=== PATIENT | female | born 1975 | race Caucasian/White ===

== ENCOUNTER → 2016-04-23 | Outpatient (CLI) | payer MEDICAID ==
--- NOTE | 2016-04-23 12:39 | REPMRS ---
Patient History The patient states she had a clinical breast exam in No known family history of cancer. Taking hormonal contraceptives for 3 years. Digital Woman Screen Mammo: April 23, 2016 - Exam #: [id number] Bilateral CC and MLO view(s) were taken. Technologist: Aviva Razo, Technologist Prior study comparison: April 03, 2015, digital woman screen mammo performed at [facility]. March 28, 2014, digital woman screen mammo performed at [facility]. May 03, 2010, bilateral digital mammo screening bilat performed at [facility] to [facility]. FINDINGS: There are scattered fibroglandular densities. There has been no change in the appearance of the mammogram from the prior studies. There is a mild amount of residual fibroglandular tissue which is fairly symmetric. There is no interval development of dominant mass, architectural distortion, or clustered microcalcification suggestive of malignancy. There is a benign appearing intramammary node in the upper outer quadrant of the left breast. No significant changes when compared with prior studies. ASSESSMENT: BI-RADS/ACR category 2 mammogram. Benign finding(s). Recommendation Routine screening mammogram in 1 year (for women over age 40). This mammogram was interpreted with the aid of an FDA-approved computer-aided dectection system. A. Negative x-ray reports should not delay biopsy if a dominant or clinically suspicious mass is present. B. Four to eight percent of cancers are not identified by mammography. C. Adenosis and dense breast may obscure an underlying neoplasm. Electronically Signed By: Scooby Matthew MD 04/23/16 0470
== END ==
LOC: M WHC 10:54
PROVIDERS: ATTEND Nurse Practitioner Family
DX: Z12.31 Encounter for screening mammogram for malignant neoplasm of breast (principal)

== ENCOUNTER → 2016-08-13 | Outpatient (REF) | payer MEDICAID | LOC: M SMT 17:20 | PROVIDERS: ATTEND Nurse Practitioner Women's Health | DX: R32 Unspecified urinary incontinence (principal) ==

== ENCOUNTER → 2017-02-12 | Outpatient (REF) | payer MEDICAID | LOC: M SMT 13:10 | PROVIDERS: ATTEND Nurse Practitioner Women's Health | DX: N39.41 Urge incontinence (principal) ==

== ENCOUNTER → 2017-05-08 | Outpatient (CLI) | payer MEDICAID | LOC: M WHC 08:08 | DX: Z12.31 Encounter for screening mammogram for malignant neoplasm of breast (principal) | CPT/HCPCS: 77067 ==

== ENCOUNTER → 2017-11-13 | Outpatient (REF) | payer MEDICAID ==
[2017-11-13 14:43] LABS: APPEARANCE, URINE HAZY (CLEAR); BACTERIA, URINE AUTO 3+ (NEGATIVE); BILIRUBIN, URINE AUTO NEGATIVE (NEGATIVE); BLOOD, URINE BLOOD 2+ (NEGATIVE); COLOR, URINE YELLOW (YELLOW); GLUCOSE, URINE (UA) AUTO NEGATIVE (NEGATIVE); KETONE, URINE AUTO NEGATIVE (NEGATIVE); LEUKOCYTE ESTERASE, URINE AUTO 1+ (NEGATIVE); MUCUS, URINE SMALL (NEGATIVE); NITRITE, URINE AUTO NEGATIVE (NEGATIVE); PROTEIN, URINE AUTO NEGATIVE (NEGATIVE); RBC, URINE AUTO 1 /HPF (0-3); SPECIFIC GRAVITY URINE AUTO 1.003 (1.002-1.035); SQUAMOUS EPITHELIAL CELL UR AU 2 /HPF (0-6); UROBILINOGEN, URINE AUTO 0.2 mg/dL (0.0-2.0); WBC, URINE AUTO 5 /HPF (0-3)
== END ==
LOC: M SMT 13:42
DX: R30.0 Dysuria (principal)

== ENCOUNTER → 2018-06-03 | Outpatient (CLI) | payer MEDICAID ==
--- NOTE | 2018-06-03 12:04 | REPMRS ---
Patient History The patient states she had a clinical breast exam in 06/2018. Took hormonal contraceptives for 3 years beginning at age 38. 3D TOMOSYNTHESIS WAS PERFORMED. Digital Woman Screen Mammo: June 03, 2018 - Exam #: [id number] Bilateral CC and MLO view(s) were taken. Technologist: Inocencia Phillips, Technologist Prior study comparison: May 08, 2017, digital woman screen mammo performed at [facility]. April 23, 2016, digital woman screen mammo performed at [facility]. FINDINGS: There are scattered fibroglandular densities. There has been no change in the appearance of the mammogram from the prior studies. There is a mild amount of residual fibroglandular tissue which is fairly symmetric. There is no interval development of dominant mass, architectural distortion, or clustered microcalcification suggestive of malignancy. Assessment: BI-RADS/ACR category 1 mammogram. Negative Mammogram. Recommendation Routine screening mammogram in 1 year (for women over age 40). This mammogram was interpreted with the aid of an FDA-approved computer-aided dectection system. Electronically Signed By: Abdirashid Shepherd MD 06/03/18 [id number]
== END ==
LOC: M WHC 10:20
PROVIDERS: ATTEND Nurse Practitioner Family
DX: Z12.31 Encounter for screening mammogram for malignant neoplasm of breast (principal)

== ENCOUNTER → 2018-06-03 | Outpatient (REF) | payer MEDICAID ==
[2018-06-06 15:33] LABS: HPV HYBRID CAPTURE II Negative (Negative)
== END ==
LOC: M SFHCWAGY 10:48
PROVIDERS: ATTEND Nurse Practitioner Family
DX: Z12.4 Encounter for screening for malignant neoplasm of cervix (principal)

== ENCOUNTER 2018-07-15 09:37 | Outpatient (RCR) | payer MEDICAID | END 2018-07-31 | LOC: M PT 09:37 | PROVIDERS: ATTEND Nurse Practitioner Women's Health | DX: N39.41 Urge incontinence (principal) ==

== ENCOUNTER 2018-08-05 09:30 | Outpatient (RCR) | payer MEDICAID | END 2018-08-30 | disposition home or self-care (01) | LOC: M PT 09:30 | PROVIDERS: ATTEND Nurse Practitioner Women's Health | DX: N39.41 Urge incontinence (principal) ==

== ENCOUNTER → 2018-10-28 | Outpatient (CLI) | payer MEDICAID ==
[2018-10-28 06:51] LABS: BASO % 0.4 % (0.0-1.0); EOS # 0.3 10^3/uL (0.0-0.50); EOS % 3.6 % (0.0-3.0); HEMATOCRIT 39.2 % (36.0-47.0); HEMOGLOBIN 12.3 g/dl (12.0-15.5); LYMPH # 1.8 10^3/uL (1.5-4.5); LYMPH % 25.9 % (24.0-44.0); MEAN CORPUSCULAR HEMOGLOBIN 29.8 pg (27.0-33.0); MEAN CORPUSCULAR HGB CONC 31.4 g/dl (32.0-36.5); MEAN CORPUSCULAR VOLUME 94.9 fl (80.0-96.0); MONO # 0.5 10^3/uL (0.0-0.8); MONO % 7.4 % (0.0-5.0); NEUTROPHILS # 4.4 10^3/uL (1.8-7.7); NEUTROPHILS % 62.4 % (36.0-66.0); PLATELET COUNT, AUTOMATED 401 10^3/uL (150-450); RED BLOOD COUNT 4.13 10^6/uL (4.00-5.40)
[2018-10-28 07:20] LABS: ALBUMIN 3.3 GM/DL (3.2-5.2); ALT/SGPT 18 U/L (12-78); BILIRUBIN,TOTAL 0.4 MG/DL (0.2-1.0); BLOOD UREA NITROGEN 11 MG/DL (7-18); CALCIUM LEVEL 8.9 MG/DL (8.5-10.1); CARBON DIOXIDE LEVEL 28 MEQ/L (21-32); CHLORIDE LEVEL 105 MEQ/L (98-107); CHOLESTEROL LEVEL 168 MG/DL (<200); CHOLESTEROL RISK RATIO 2.584 (<5); CREATININE FOR GFR 0.71 MG/DL (0.55-1.30); GLOMERULAR FILTRATION RATE > 60.0 (>58); GLUCOSE, FASTING 100 MG/DL (70-100); HDL CHOLESTEROL 65 MG/DL (>40); LDL CHOLESTEROL 88 MG/DL (<100); NON-HDL-C 103 MG/DL; POTASSIUM SERUM 4.3 MEQ/L (3.5-5.1); SODIUM LEVEL 139 MEQ/L (136-145); TOTAL PROTEIN 7.1 GM/DL (6.4-8.2); TRIGLYCERIDES LEVEL 74 MG/DL (<150)
== END ==
LOC: M LAB 06:18
PROVIDERS: ATTEND Internal Medicine
DX: F41.9 Anxiety disorder, unspecified (principal); E66.9 Obesity, unspecified

== ENCOUNTER → 2018-12-17 | Outpatient (REF) | payer MEDICAID | LOC: M LAB REF 16:28 | PROVIDERS: ATTEND Physician Assistant | DX: R30.0 Dysuria (principal) ==

== ENCOUNTER 2020-03-09 17:33 | Emergency (ER) | payer MEDICAID ==
[~2020-03-09] VITALS: Ht 167.6 cm; Wt 104.5 kg
[2020-03-09 18:52] LABS: BASO # 0.1 10^3/uL (0.0-0.2); BASO % 0.8 % (0.0-1.0); EOS # 0.4 10^3/uL (0.0-0.5); EOS % 5.4 % (0.0-3.0); HEMATOCRIT 38.7 % (36.0-47.0); HEMOGLOBIN 11.8 g/dl (12.0-15.5); LYMPH # 1.9 10^3/uL (1.5-5.0); LYMPH % 26.5 % (24.0-44.0); MEAN CORPUSCULAR HEMOGLOBIN 29.3 pg (27.0-33.0); MEAN CORPUSCULAR HGB CONC 30.5 g/dl (32.0-36.5); MONO # 0.9 10^3/uL (0.0-0.8); MONO % 12.8 % (0.0-5.0); NEUTROPHILS # 3.9 10^3/uL (1.5-8.5); NEUTROPHILS % 54.2 % (36.0-66.0); PLATELET COUNT, AUTOMATED 367 10^3/uL (150-450); RED BLOOD COUNT 4.03 10^6/uL (4.00-5.40); WHITE BLOOD COUNT 7.2 10^3/uL (4.0-10.0)
[2020-03-09] MEDS ORDERED: AMIT50TA PO (19:02)
[2020-03-09] MEDS ORDERED: LEXA1TAB2 PO (19:02)
[2020-03-09] MEDS ORDERED: MECLIZINE 25 MG TABLET PO ONE (19:30)
[2020-03-09] MEDS ORDERED: ONDANSETRON 4 MG ORAL DISINTEGRATING TAB PO ONE (22:30)
[2020-03-09] MEDS ORDERED: DEBR6.5S4 OTIC (22:40)
[2020-03-09] MEDS ORDERED: FLON1SPR NARES (22:40)
[2020-03-09] MEDS ORDERED: ONDA4TAB6 PO (22:40)
[2020-03-09 22:52] VITALS: BP 148/86
== END 2020-03-09 22:53 | disposition home or self-care (01) ==
LOC: EDBD 17:33 → M ED 17:33
DX: R42 Dizziness and giddiness (principal); H61.23 Impacted cerumen, bilateral; H65.02 Acute serous otitis media, left ear; F33.9 Major depressive disorder, recurrent, unspecified; Z91.030 Bee allergy status; Z79.899 Other long term (current) drug therapy
CPT/HCPCS: 36415; 69210; 80047; 81001; 85025; 99284; Q0162

== ENCOUNTER → 2020-07-10 | Outpatient (CLI) | payer MEDICAID ==
[~2020-07-10] MED LIST: AMIT50TA PO; DEBR6.5S4 OTIC; FLON1SPR NARES; LEXA1TAB2 PO; ONDA4TAB6 PO
--- NOTE | 2020-07-10 14:48 | REP ---
INDICATION: ALBER DIAG LEFT MAMMO/LEFT BREAST JOSE DENSITY. COMPARISON: Prior screening exam 06/29/2020 TECHNIQUE: Diagnostic digital magnified spot compression views left breast were obtained FINDINGS: The subtle nodular density in question has compressed out to normal breast parenchyma. There are no abnormalities noted. IMPRESSION: BIRADS/ACR category 2 negative mammogram. The patient letter being requested is M1. RECOMMENDATION: Repeat screening mammography recommended 1 year (for women over 40). <Electronically signed by Gage Cole > 07/10/20 [id number]
== END ==
LOC: M WHC 13:53
PROVIDERS: ATTEND Internal Medicine
DX: N64.89 Other specified disorders of breast (principal)
CPT/HCPCS: 77065; G0279

== ENCOUNTER 2020-09-07 11:42 | Emergency (ER) | payer MEDICAID ==
[~2020-09-07] VITALS: Ht 167.6 cm; Wt 112.7 kg
[2020-09-07] MEDS ORDERED: ACETAMINOPHEN 500 MG TAB PO ONE (11:50)
--- NOTE | 2020-09-07 12:19 | REP ---
INDICATION: CP. COMPARISON: 09/22/2006. TECHNIQUE: Single portable AP view of the chest was performed. FINDINGS: There is no acute infiltrate or pulmonary edema. Lungs are clear. The heart is not significantly enlarged. The mediastinal silhouette is unremarkable. The visualized osseous structures are intact. IMPRESSION: No acute pulmonary disease. <Electronically signed by Abdirashid Shepherd > 09/07/20 [id number]
[2020-09-07 12:36] LABS: BASO # 0.1 10^3/uL (0.0-0.2); BASO % 0.7 % (0.0-1.0); EOS # 0.6 10^3/uL (0.0-0.5); EOS % 6.8 % (0.0-3.0); HEMATOCRIT 42.8 % (36.0-47.0); HEMOGLOBIN 13.4 g/dl (12.0-15.5); LYMPH # 2.1 10^3/uL (1.5-5.0); LYMPH % 25.7 % (24.0-44.0); MEAN CORPUSCULAR HEMOGLOBIN 29.3 pg (27.0-33.0); MEAN CORPUSCULAR HGB CONC 31.3 g/dl (32.0-36.5); MEAN CORPUSCULAR VOLUME 93.4 fl (80.0-96.0); MONO # 0.6 10^3/uL (0.0-0.8); MONO % 6.9 % (2.0-8.0); NEUTROPHILS # 4.9 10^3/uL (1.5-8.5); NEUTROPHILS % 59.5 % (36.0-66.0); PLATELET COUNT, AUTOMATED 410 10^3/uL (150-450); RED BLOOD COUNT 4.58 10^6/uL (4.00-5.40); WHITE BLOOD COUNT 8.2 10^3/uL (4.0-10.0)
[2020-09-07 13:13] LABS: ALBUMIN 3.5 GM/DL (3.2-5.2); ALT/SGPT 27 U/L (12-78); BILIRUBIN,DIRECT < 0.1 MG/DL (0.0-0.2); BILIRUBIN,TOTAL 0.5 MG/DL (0.2-1.0); LIPASE 127 U/L (73-393)
[2020-09-07] MEDS ORDERED: ISOVUE-370 76% 100ML VIAL As Ordered ONE (14:31)
--- NOTE | 2020-09-07 16:04 | REP ---
INDICATION: cp COMPARISON: None. TECHNIQUE: Axial contrast enhanced images from the thoracic inlet to the upper abdomen using pulmonary embolus technique with multiplanar re-formations. 100 ml Isovue 370 intravenous contrast material administered without complication. This CT examination was performed using the following dose reduction techniques: Automated exposure control, adjustment of mA and/or kv according to the patient's size, and use of iterative reconstruction technique. FINDINGS: Satisfactory enhancement of the pulmonary vasculature is achieved and no filling defects are identified to suggest pulmonary embolus. Further evaluation of the mediastinum demonstrates normal thoracic aorta, heart and pericardium. The bilateral lung tracy are well aerated and clear without consolidation pleural effusion or pneumothorax. Tracheobronchial tree is patent. No nodule or mass lesion is identified. No adenopathy noted. Surrounding musculoskeletal structures intact IMPRESSION: No evidence for pulmonary embolus. No acute mediastinal or pleural parenchymal process. <Electronically signed by Rick Gonzales > 09/07/20 1600
--- NOTE | 2020-09-07 16:08 | REP ---
INDICATION: abd pain. COMPARISON: None TECHNIQUE: Axial contrast-enhanced images from the lung bases to the pubic symphysis using 100 cc Isovue 370 intravenous contrast material. Coronal and sagittal reformations obtained. This CT examination was performed using the following dose reduction techniques: Automated exposure control, adjustment of mA and/or kv according to the patient's size, and the use of iterative reconstruction technique. FINDINGS: Liver demonstrates fatty infiltration without focal lesion. Spleen, pancreas, bilateral adrenal glands and kidneys are normal. The enteric system is without obstruction or acute inflammatory process. Normal terminal ileum and appendix are identified in the right lower quadrant. Colonic diverticulosis noted without acute diverticulitis. Pelvis demonstrates normal bladder and age-appropriate uterus/adnexa. No ascites. No free air. No intraperitoneal or retroperitoneal adenopathy. Abdominal aorta and vasculature appear normal. Musculoskeletal structures are intact and without acute osseous abnormality. IMPRESSION: No acute abdominopelvic pathology appreciated. Diverticulosis without acute diverticulitis. <Electronically signed by Rick Gonzales > 09/07/20 [id number]
[2020-09-07 16:57] VITALS: BP 166/77
--- NOTE | 2020-09-08 16:35 | ECGEPIP ---
[facility] - ED Test Date: 2020-09-07 Pat Name: AGNES UNDERWOOD Department: Room: - Gender: Female [employer]: : 1975 Requested By: Zo Pozo Order Number: [id number] Reading MD: Humberto Montez Measurements Intervals [place] Rate: 76 P: 37 [place]: 182 QRS: 21 QRSD: 80 T: 33 QT: 408 QTc: 459 Interpretive Statements Normal sinus rhythm Nonspecific ST-T wave abnormalities Similar to tracing done 06-10-14 Electronically Signed on 09-08-2020 16:35:24 EDT by Humberto Montez
== END 2020-09-07 17:03 | disposition home or self-care (01) ==
LOC: M ED 11:42 → EDBD 11:42 → M ED 17:03
DX: R07.89 Other chest pain (principal); R10.9 Unspecified abdominal pain; I10 Essential (primary) hypertension; F79 Unspecified intellectual disabilities; Z79.899 Other long term (current) drug therapy; Z88.2 Allergy status to sulfonamides; Z88.8 Allergy status to other drugs, medicaments and biological substances; Z91.030 Bee allergy status; Z87.891 Personal history of nicotine dependence
CPT/HCPCS: 36415; 71045; 71275; 74177; 80047; 80076; 83690; 85025; 93005; 93041; 94760; 99285; Q9967

== ENCOUNTER → 2020-12-07 | Outpatient (REF) | payer MEDICAID | LOC: M SFHCWAGY 17:47 | PROVIDERS: ATTEND Advanced Practice Midwife | DX: Z12.4 Encounter for screening for malignant neoplasm of cervix (principal) ==

== ENCOUNTER → 2020-12-15 | Outpatient (CLI) | payer MEDICAID ==
--- NOTE | 2020-12-15 21:12 | REP ---
INDICATION: FELL ON L ELBOW COMPARISON: None. TECHNIQUE: AP, lateral, oblique views of the left elbow. FINDINGS: No acute fracture or dislocation is appreciated. Joint spaces and surrounding soft tissues appear normal. Lateral view demonstrates normal positioning to the anterior and posterior fat pads without evidence for effusion/hemarthrosis. No subcutaneous emphysema or foreign body identified. IMPRESSION: No acute fracture or dislocation. <Electronically signed by Rick Gonzales > 12/15/20 [id number]
== END ==
LOC: M RAD 20:30
PROVIDERS: ATTEND Physician Assistant
DX: M25.522 Pain in left elbow (principal); Z91.81 History of falling

== ENCOUNTER → 2021-02-27 | Outpatient (CLI) | payer MEDICAID | LOC: M RAD 14:16 | PROVIDERS: ATTEND Advanced Practice Midwife | DX: N92.6 Irregular menstruation, unspecified (principal) ==

== ENCOUNTER 2021-05-08 08:58 | Emergency (ER) | payer MEDICAID ==
[~2021-05-08] VITALS: Ht 167.6 cm; Wt 112.7 kg
[2021-05-08] MEDS ORDERED: CALCCAP4 PO (09:19)
[2021-05-08 10:14] LABS: BASO # 0.1 10^3/uL (0.0-0.2); BASO % 0.8 % (0.0-1.0); EOS # 0.4 10^3/uL (0.0-0.5); EOS % 5.1 % (0.0-3.0); HEMATOCRIT 37.2 % (36.0-47.0); HEMOGLOBIN 11.9 g/dl (12.0-15.5); LYMPH # 1.8 10^3/uL (1.5-5.0); LYMPH % 20.9 % (24.0-44.0); MEAN CORPUSCULAR VOLUME 93.7 fl (80.0-96.0); MONO # 0.7 10^3/uL (0.0-0.8); MONO % 8.8 % (2.0-8.0); NEUTROPHILS # 5.4 10^3/uL (1.5-8.5); NEUTROPHILS % 64.2 % (36.0-66.0); PLATELET COUNT, AUTOMATED 366 10^3/uL (150-450); RED BLOOD COUNT 3.97 10^6/uL (4.00-5.40); WHITE BLOOD COUNT 8.4 10^3/uL (4.0-10.0)
[2021-05-08 10:24] LABS: INR 0.98; PROTHROMBIN TIME 13.4 SECONDS (12.7-14.5)
[2021-05-08 10:25] LABS: PARTIAL THROMBOPLASTIN TIME 28.6 SECONDS (25.9-37.0)
[2021-05-08 10:37] LABS: ERYTHROCYTE SEDIMENTATION RATE 63 mm/hr (0-20)
[2021-05-08 10:41] LABS: HCG, SERUM QUALITATIVE NEGATIVE (NEGATIVE)
[2021-05-08 10:51] LABS: ALBUMIN 3.3 GM/DL (3.2-5.2); ALT/SGPT 17 U/L (12-78); BILIRUBIN,DIRECT 0.1 MG/DL (0.0-0.2); BILIRUBIN,TOTAL 0.3 MG/DL (0.2-1.0); BLOOD UREA NITROGEN 14 MG/DL (7-18); C REACTIVE PROTEIN QUANTITATIV 0.91 MG/DL (0.00-0.30); CALCIUM LEVEL 8.8 MG/DL (8.5-10.1); CARBON DIOXIDE LEVEL 30 MEQ/L (21-32); CHLORIDE LEVEL 107 MEQ/L (98-107); CREATININE FOR GFR 0.64 MG/DL (0.55-1.30); GLOMERULAR FILTRATION RATE > 60.0 (>58); GLUCOSE, FASTING 86 MG/DL (70-100); LIPASE 127 U/L (73-393); NT-PRO BNP 138 PG/ML (<125); POTASSIUM SERUM 4.2 MEQ/L (3.5-5.1); SODIUM LEVEL 138 MEQ/L (136-145); TOTAL PROTEIN 7.1 GM/DL (6.4-8.2)
[2021-05-08 10:53] LABS: CK-MB VALUE MASS < 1.0 NG/ML (<3.6); CPK CREATINE PHOSPHOKINASE 82 U/L (26-192); MB/CK RELATIVE INDEX 1.22 (< OR =4)
[2021-05-08] MEDS ORDERED: KETO10TAB PO (13:09)
[2021-05-08] MEDS ORDERED: KETOROLAC TROMETHAMINE 10 MG TAB PO ONE (13:15)
[2021-05-08 13:39] VITALS: BP 145/68
== END 2021-05-08 14:28 | disposition home or self-care (01) ==
LOC: EDBD 08:58 → M ED 08:58
DX: R07.89 Other chest pain (principal); R06.02 Shortness of breath; I10 Essential (primary) hypertension; Z79.899 Other long term (current) drug therapy; Z88.2 Allergy status to sulfonamides; Z88.8 Allergy status to other drugs, medicaments and biological substances; Z91.030 Bee allergy status; Z87.891 Personal history of nicotine dependence

== ENCOUNTER 2021-05-30 10:55 | Emergency (ER) | payer MEDICAID ==
[~2021-05-30] VITALS: Ht 167.6 cm; Wt 109.1 kg
[~2021-05-30 10:55] MED LIST changes: +CALCCAP4 PO; +KETO10TAB PO
[2021-05-30] MEDS ORDERED: KETOROLAC 30 MG/ML 1ML VIAL IV ONE (11:35)
[2021-05-30 11:42] LABS: BASO # 0.1 10^3/uL (0.0-0.2); BASO % 0.8 % (0.0-1.0); EOS # 0.5 10^3/uL (0.0-0.5); EOS % 7.1 % (0.0-3.0); HEMATOCRIT 37.3 % (36.0-47.0); LYMPH # 2.2 10^3/uL (1.5-5.0); LYMPH % 29.6 % (24.0-44.0); MEAN CORPUSCULAR HEMOGLOBIN 29.6 pg (27.0-33.0); MEAN CORPUSCULAR HGB CONC 32.2 g/dl (32.0-36.5); MEAN CORPUSCULAR VOLUME 91.9 fl (80.0-96.0); MONO # 0.5 10^3/uL (0.0-0.8); MONO % 6.1 % (2.0-8.0); NEUTROPHILS # 4.3 10^3/uL (1.5-8.5); NEUTROPHILS % 56.1 % (36.0-66.0); PLATELET COUNT, AUTOMATED 387 10^3/uL (150-450); RED BLOOD COUNT 4.06 10^6/uL (4.00-5.40); WHITE BLOOD COUNT 7.6 10^3/uL (4.0-10.0)
[2021-05-30 12:18] LABS: CK-MB VALUE MASS < 1.0 NG/ML (<3.6); CPK CREATINE PHOSPHOKINASE 172 U/L (26-192); MB/CK RELATIVE INDEX 0.58 (< OR =4)
[2021-05-30 12:34] LABS: ALBUMIN 3.3 GM/DL (3.2-5.2); ALT/SGPT 19 U/L (12-78); BILIRUBIN,DIRECT 0.1 MG/DL (0.0-0.2); BILIRUBIN,TOTAL 0.5 MG/DL (0.2-1.0); BLOOD UREA NITROGEN 11 MG/DL (7-18); CALCIUM LEVEL 8.9 MG/DL (8.5-10.1); CARBON DIOXIDE LEVEL 31 MEQ/L (21-32); CHLORIDE LEVEL 106 MEQ/L (98-107); CREATININE FOR GFR 0.67 MG/DL (0.55-1.30); GLOMERULAR FILTRATION RATE > 60.0 (>58); GLUCOSE, FASTING 96 MG/DL (70-100); LIPASE 98 U/L (73-393); NT-PRO BNP 146 PG/ML (<125); POTASSIUM SERUM 4.2 MEQ/L (3.5-5.1); SODIUM LEVEL 139 MEQ/L (136-145); TOTAL PROTEIN 7.3 GM/DL (6.4-8.2)
[2021-05-30] MEDS ORDERED: ISOVUE-370 76% 100ML VIAL As Ordered ONE (12:42)
[2021-05-30 13:04] LABS: CK-MB VALUE MASS < 1.0 NG/ML (<3.6); CPK CREATINE PHOSPHOKINASE 160 U/L (26-192); MB/CK RELATIVE INDEX 0.62 (< OR =4)
[2021-05-30 14:11] VITALS: BP 144/64
[2021-05-30] MEDS ORDERED: GI COCKTAIL 50ML BTL(HYOSCYAMINE/MAALOX/LIDOCAINE VISCOUS)(1:3:1) PO ONE (14:20)
[2021-05-30 14:45] LABS: CK-MB VALUE MASS < 1.0 NG/ML (<3.6); CPK CREATINE PHOSPHOKINASE 155 U/L (26-192); MB/CK RELATIVE INDEX 0.65 (< OR =4)
== END 2021-05-30 15:43 | disposition home or self-care (01) ==
LOC: EDBD 10:55 → M ED 10:55
DX: R07.9 Chest pain, unspecified (principal); R05.9 Cough, unspecified; Z79.899 Other long term (current) drug therapy; Z88.2 Allergy status to sulfonamides; Z88.8 Allergy status to other drugs, medicaments and biological substances; Z91.030 Bee allergy status
CPT/HCPCS: 71045; 71275; 80048; 80076; 82550; 82553; 83690; 83880; 84443; 85025; 93005; 93041; 94760; 96374; 99285; J1885; Q9967

== ENCOUNTER → 2021-07-02 | Outpatient (CLI) | payer MEDICAID | LOC: M WHC 10:24 | PROVIDERS: ATTEND Advanced Practice Midwife | DX: Z12.31 Encounter for screening mammogram for malignant neoplasm of breast (principal); Z92.0 Personal history of contraception ==

== ENCOUNTER 2021-08-25 08:01 | Emergency (ER) | payer MEDICAID ==
[~2021-08-25] VITALS: Ht 167.6 cm; Wt 98.6 kg
[2021-08-25 09:11] LABS: BASO % 0.6 % (0.0-1.0); EOS # 0.3 10^3/uL (0.0-0.5); HEMATOCRIT 37.8 % (36.0-47.0); HEMOGLOBIN 12.1 g/dl (12.0-15.5); LYMPH # 1.7 10^3/uL (1.5-5.0); LYMPH % 27.3 % (24.0-44.0); MEAN CORPUSCULAR VOLUME 93.8 fl (80.0-96.0); MONO # 0.5 10^3/uL (0.0-0.8); MONO % 7.9 % (2.0-8.0); NEUTROPHILS # 3.7 10^3/uL (1.5-8.5); PLATELET COUNT, AUTOMATED 353 10^3/uL (150-450); RED BLOOD COUNT 4.03 10^6/uL (4.00-5.40); WHITE BLOOD COUNT 6.2 10^3/uL (4.0-10.0)
[2021-08-25 09:37] LABS: ALBUMIN 3.3 GM/DL (3.2-5.2); ALT/SGPT 18 U/L (12-78); BILIRUBIN,TOTAL 0.5 MG/DL (0.2-1.0); BLOOD UREA NITROGEN 17 MG/DL (7-18); CARBON DIOXIDE LEVEL 29 MEQ/L (21-32); CHLORIDE LEVEL 107 MEQ/L (98-107); CREATININE FOR GFR 0.78 MG/DL (0.55-1.30); GLOMERULAR FILTRATION RATE > 60.0 (>58); GLUCOSE, FASTING 100 MG/DL (70-100); POTASSIUM SERUM 4.4 MEQ/L (3.5-5.1); SODIUM LEVEL 139 MEQ/L (136-145); TOTAL PROTEIN 7.3 GM/DL (6.4-8.2)
[2021-08-25 12:20] LABS: CK-MB VALUE MASS < 1.0 NG/ML (<3.6); CPK CREATINE PHOSPHOKINASE 135 U/L (26-192); MB/CK RELATIVE INDEX 0.74 (< OR =4)
[2021-08-25] MEDS ORDERED: PENI500T PO (12:47)
[2021-08-25 12:58] VITALS: BP 170/92
== END 2021-08-25 13:00 | disposition home or self-care (01) ==
LOC: M ED 08:01 → EDBD 08:01 → M ED 13:00
DX: R07.89 Other chest pain (principal); J02.0 Streptococcal pharyngitis; I10 Essential (primary) hypertension; F79 Unspecified intellectual disabilities; Z79.899 Other long term (current) drug therapy; Z88.2 Allergy status to sulfonamides; Z88.8 Allergy status to other drugs, medicaments and biological substances; Z91.030 Bee allergy status

== ENCOUNTER 2022-01-11 13:48 | Emergency (ER) | payer MEDICAID ==
[~2022-01-11] VITALS: Ht 167.6 cm; Wt 103.1 kg
[~2022-01-11 13:48] MED LIST changes: +PENI500T PO
[2022-01-11] MEDS ORDERED: NS 1,000 ML IV ONE (18:00)
[2022-01-11 18:48] LABS: BASO # 0.1 10^3/uL (0.0-0.2); BASO % 0.8 % (0.0-1.0); EOS # 0.3 10^3/uL (0.0-0.5); EOS % 3.9 % (0.0-3.0); HEMATOCRIT 42.6 % (36.0-47.0); HEMOGLOBIN 13.7 g/dl (12.0-15.5); LYMPH # 2.6 10^3/uL (1.5-5.0); LYMPH % 36.1 % (24.0-44.0); MEAN CORPUSCULAR HEMOGLOBIN 29.9 pg (27.0-33.0); MEAN CORPUSCULAR HGB CONC 32.2 g/dl (32.0-36.5); MONO # 0.6 10^3/uL (0.0-0.8); NEUTROPHILS # 3.7 10^3/uL (1.5-8.5); NEUTROPHILS % 50.9 % (36.0-66.0); PLATELET COUNT, AUTOMATED 369 10^3/uL (150-450); RED BLOOD COUNT 4.58 10^6/uL (4.00-5.40); WHITE BLOOD COUNT 7.2 10^3/uL (4.0-10.0)
[2022-01-11] MEDS ORDERED: ISOVUE-370 76% 100ML VIAL As Ordered ONE (19:08)
[2022-01-11 20:33] LABS: ALBUMIN 3.3 GM/DL (3.2-5.2); ALT/SGPT 24 U/L (12-78); BILIRUBIN,DIRECT 0.1 MG/DL (0.0-0.2); BILIRUBIN,TOTAL 0.6 MG/DL (0.2-1.0); BLOOD UREA NITROGEN 12 MG/DL (7-18); CALCIUM LEVEL 8.8 MG/DL (8.5-10.1); CARBON DIOXIDE LEVEL 25 MEQ/L (21-32); CHLORIDE LEVEL 105 MEQ/L (98-107); CREATININE FOR GFR 0.66 MG/DL (0.55-1.30); GLOMERULAR FILTRATION RATE > 60.0 (>58); GLUCOSE, FASTING 90 MG/DL (70-100); LIPASE 114 U/L (73-393); POTASSIUM SERUM 4.2 MEQ/L (3.5-5.1); SODIUM LEVEL 137 MEQ/L (136-145); TOTAL PROTEIN 7.3 GM/DL (6.4-8.2)
[2022-01-11 20:35] LABS: CK-MB VALUE MASS < 1.0 NG/ML (<3.6); CPK CREATINE PHOSPHOKINASE 122 U/L (26-192); MB/CK RELATIVE INDEX 0.82 (< OR =4)
[2022-01-11] MEDS ORDERED: ACETAMINOPHEN 500 MG TAB PO ONE (21:15)
[2022-01-11] MEDS ORDERED: DOCUSATE SODIUM 100MG CAPSULE PO ONE (21:15)
[2022-01-11] MEDS ORDERED: COLA100C5 PO (21:19)
[2022-01-11 21:39] VITALS: BP 185/100
== END 2022-01-11 21:59 | disposition home or self-care (01) ==
LOC: EDBD 13:48 → M ED 13:48
DX: R07.9 Chest pain, unspecified (principal); K59.00 Constipation, unspecified; F41.9 Anxiety disorder, unspecified; K76.0 Fatty (change of) liver, not elsewhere classified; K44.9 Diaphragmatic hernia without obstruction or gangrene; K58.9 Irritable bowel syndrome, unspecified; H81.4 Vertigo of central origin; Z87.891 Personal history of nicotine dependence; Z91.030 Bee allergy status; Z88.2 Allergy status to sulfonamides; Z79.899 Other long term (current) drug therapy

== ENCOUNTER → 2022-05-22 | Outpatient (REF) | payer MEDICAID ==
[~2022-05-22] MED LIST changes: +COLA100C5 PO
== END ==
LOC: M SFHCWAGY 14:58
PROVIDERS: ATTEND Nurse Practitioner Family
DX: Z12.4 Encounter for screening for malignant neoplasm of cervix (principal); R87.615 Unsatisfactory cytologic smear of cervix

== ENCOUNTER → 2022-06-05 | Outpatient (REF) | payer MEDICAID | LOC: M PLALAB 17:11 | PROVIDERS: ATTEND Nurse Practitioner Family | DX: Z12.4 Encounter for screening for malignant neoplasm of cervix (principal) ==

== ENCOUNTER → 2022-07-22 | Outpatient (CLI) | payer MEDICAID | LOC: M WHC 10:55 | PROVIDERS: ATTEND Nurse Practitioner Family | DX: Z12.31 Encounter for screening mammogram for malignant neoplasm of breast (principal) ==

== ENCOUNTER → 2022-08-08 | Outpatient (CLI) | payer MEDICAID | LOC: M WUC 08:09 | PROVIDERS: ATTEND Internal Medicine | DX: M25.572 Pain in left ankle and joints of left foot (principal); M77.32 Calcaneal spur, left foot; Z87.81 Personal history of (healed) traumatic fracture ==

== ENCOUNTER 2023-02-01 22:46 | Emergency (ER) | payer MEDICAID ==
[~2023-02-01] VITALS: Ht 167.6 cm; Wt 106.0 kg
[2023-02-02 00:55] LABS: BASO % 0.3 % (0.0-1.0); EOS # 0.2 10^3/uL (0.0-0.5); EOS % 1.4 % (0.0-3.0); HEMATOCRIT 39.6 % (36.0-47.0); HEMOGLOBIN 12.7 g/dl (12.0-15.5); LYMPH # 1.4 10^3/uL (1.5-5.0); LYMPH % 10.5 % (24.0-44.0); MEAN CORPUSCULAR HEMOGLOBIN 29.5 pg (27.0-33.0); MEAN CORPUSCULAR HGB CONC 32.1 g/dl (32.0-36.5); MEAN CORPUSCULAR VOLUME 91.9 fl (80.0-96.0); MONO # 0.7 10^3/uL (0.0-0.8); MONO % 5.8 % (2.0-8.0); NEUTROPHILS # 10.5 10^3/uL (1.5-8.5); NEUTROPHILS % 81.7 % (36.0-66.0); PLATELET COUNT, AUTOMATED 368 10^3/uL (150-450); RED BLOOD COUNT 4.31 10^6/uL (4.00-5.40); WHITE BLOOD COUNT 12.8 10^3/uL (4.0-10.0)
[2023-02-02 01:25] LABS: ALBUMIN 3.5 G/DL (3.2-5.2); ALKALINE PHOSPHATASE 76 U/L (46-116); ALT/SGPT 14 U/L (7.0-40); AST/SGOT 18 U/L (<34); BILIRUBIN,TOTAL 0.4 MG/DL (0.3-1.2); BLOOD UREA NITROGEN 16 MG/DL (9-23); CALCIUM LEVEL 8.9 MG/DL (8.5-10.1); CARBON DIOXIDE LEVEL 27 MMOL/L (20-31); CHLORIDE LEVEL 102 MMOL/L (98-107); CREATININE FOR GFR 0.68 MG/DL (0.55-1.30); GLOMERULAR FILTRATION RATE > 60.0 (>58); GLUCOSE, FASTING 120 MG/DL (60-100); SODIUM LEVEL 138 MMOL/L (136-145); TOTAL PROTEIN 7.5 G/DL (5.7-8.2)
[2023-02-02] MEDS ORDERED: NS 1,000 ML IV ONE (02:20)
[2023-02-02] MEDS ORDERED: ONDANSETRON 4MG 2ML VIAL IV ONE (03:00)
[2023-02-02] MEDS ORDERED: ISOVUE-370 76% 100ML VIAL As Ordered ONE (04:02)
[2023-02-02] MEDS ORDERED: ONDA4TAB6 PO (04:39)
[2023-02-02] MEDS ORDERED: CIPR-249 PO (04:44)
[2023-02-02] MEDS ORDERED: CIPROFLOXACIN 500MG TABLET PO ONE (05:00)
[2023-02-02 05:05] VITALS: BP 144/78; TEMP 97.6; O2SAT 100
== END 2023-02-02 05:08 | disposition home or self-care (01) ==
LOC: M ED 22:46 → EDBD 22:46 → M ED 02-02 05:08
DX: N39.0 Urinary tract infection, site not specified (principal); K52.9 Noninfective gastroenteritis and colitis, unspecified; Z90.49 Acquired absence of other specified parts of digestive tract; F32.A Depression, unspecified; Z88.2 Allergy status to sulfonamides; Z11.52 Encounter for screening for COVID-19
CPT/HCPCS: 74177; 80053; 81001; 85025; 87086; 87486; 87581; 87633; 87798; 93005; 96361; 96374; 99284; J2405; Q9967

== ENCOUNTER → 2023-07-24 | Outpatient (CLI) | payer MEDICAID ==
[~2023-07-24] MED LIST changes: +CIPR-249 PO
== END ==
LOC: M WHC 10:06
PROVIDERS: ATTEND Nurse Practitioner Family
DX: Z12.31 Encounter for screening mammogram for malignant neoplasm of breast (principal)

== ENCOUNTER → 2023-07-24 | Outpatient (REF) | payer MEDICAID | LOC: M SFHCWAGY 15:06 | PROVIDERS: ATTEND Nurse Practitioner Family | DX: Z12.4 Encounter for screening for malignant neoplasm of cervix (principal) ==

== ENCOUNTER 2023-12-23 12:47 | Emergency (ER) | payer MEDICAID ==
[~2023-12-23 12:47] MED LIST changes: +ONDA-282 PO; -ONDA4TAB6 PO
[2023-12-23] MEDS: FAMOTIDINE 20MG/2ML VIAL IVP ONE (14:46)
[2023-12-23] MEDS: methylPREDNISolone 125MG 2ML VIAL IV ONE (14:47)
[2023-12-23] MEDS ORDERED: EPIP0.3I2 IM (15:23)
[2023-12-23] MEDS ORDERED: BENA25CA4 PO (15:24)
[2023-12-23] MEDS ORDERED: PEPC1TAB5 PO (15:24)
[2023-12-23] MEDS ORDERED: PRED20TA PO (15:24)
[2023-12-23 15:54] VITALS: BP 149/71; TEMP 98.8; O2SAT 100
== END 2023-12-23 15:58 | disposition home or self-care (01) ==
LOC: M ED 12:47 → EDBD 12:47 → M ED 15:58
DX: T63.441A Toxic effect of venom of bees, accidental (unintentional), initial encounter (principal); Z91.030 Bee allergy status; Z88.2 Allergy status to sulfonamides; Z88.8 Allergy status to other drugs, medicaments and biological substances; Z79.2 Long term (current) use of antibiotics; Z79.52 Long term (current) use of systemic steroids; Z79.899 Other long term (current) drug therapy
CPT/HCPCS: 93041; 96374; 96375; 99284; J2919; S0028

== ENCOUNTER → 2024-01-13 | Outpatient (CLI) | payer MEDICAID ==
[~2024-01-13] MED LIST changes: +BENA25CA4 PO; +EPIP0.3I2 IM; +PEPC1TAB5 PO; +PRED20TA PO
[2024-01-13 12:34] LABS: BASO # 0.1 10^3/uL (0.0-0.2); BASO % 0.6 % (0.0-1.0); EOS # 0.4 10^3/uL (0.0-0.5); HEMATOCRIT 39.4 % (36.0-47.0); HEMOGLOBIN 12.2 g/dl (12.0-15.5); LYMPH # 2.1 10^3/uL (1.5-5.0); LYMPH % 23.2 % (24.0-44.0); MEAN CORPUSCULAR HEMOGLOBIN 29.3 pg (27.0-33.0); MEAN CORPUSCULAR VOLUME 94.5 fl (80.0-96.0); MONO # 0.8 10^3/uL (0.0-0.8); MONO % 9.1 % (2.0-8.0); NEUTROPHILS # 5.6 10^3/uL (1.5-8.5); NEUTROPHILS % 62.8 % (36.0-66.0); PLATELET COUNT, AUTOMATED 371 10^3/uL (150-450); RED BLOOD COUNT 4.17 10^6/uL (4.00-5.40)
== END ==
LOC: M WUC 09:38
PROVIDERS: ATTEND Internal Medicine
DX: D72.829 Elevated white blood cell count, unspecified (principal)

== ENCOUNTER 2024-02-13 07:32 | Emergency (ER) | payer MEDICAID ==
[~2024-02-13] VITALS: Ht 167.6 cm; Wt 121.2 kg
[2024-02-13] MEDS ORDERED: SERO50TA PO (07:48)
[2024-02-13] MEDS ORDERED: SERT50TA29 PO (07:48)
[2024-02-13] MEDS: ACETAMINOPHEN 325 MG TAB PO ONE (08:04)
[2024-02-13] MEDS: IBUPROFEN 600MG TAB PO ONE (08:42)
[2024-02-13 11:10] VITALS: BP 128/72; TEMP 97.5; O2SAT 98
== END 2024-02-13 11:13 | disposition home or self-care (01) ==
LOC: M ED 07:32
DX: S06.0X0A Concussion without loss of consciousness, initial encounter (principal); M25.522 Pain in left elbow; Y92.9 Unspecified place or not applicable; Y93.9 Activity, unspecified; Y99.9 Unspecified external cause status; W50.0XXA Accidental hit or strike by another person, initial encounter; Z91.030 Bee allergy status; Z88.2 Allergy status to sulfonamides; Z88.8 Allergy status to other drugs, medicaments and biological substances; Z79.899 Other long term (current) drug therapy

== ENCOUNTER 2024-04-16 16:49 | Emergency (ER) | payer MEDICAID ==
[~2024-04-16] VITALS: Ht 167.6 cm; Wt 118.4 kg
[~2024-04-16 16:49] MED LIST changes: +ACET-907 PO; +D31000CA4 PO; +GUAN2TAB PO; +SERO50TA PO; +SERT50TA29 PO; +TERB250T91 PO
[2024-04-16 16:54] VITALS: BP 138/89; TEMP 96.7; O2SAT 98
== END 2024-04-16 20:30 | disposition left against medical advice (07) ==
LOC: EDBD 16:49 → M ED 16:49
DX: Z53.21 Procedure and treatment not carried out due to patient leaving prior to being seen by health care provider (principal)

== ENCOUNTER 2024-05-13 09:21 | Day surgery (SDC) | payer MEDICAID ==
[~2024-05-13] VITALS: Ht 172.7 cm; Wt 119.7 kg
[2024-05-13] MEDS ORDERED: propofoL 200 MG/20 ML VIAL As Ordered ONE (09:56)
[2024-05-13] MEDS ORDERED: LIDOCAINE 2% 100MG/5ML SDV (FOR ANES.) As Ordered ONE (09:56)
[2024-05-13 10:53] VITALS: TEMP 97
[2024-05-13 11:10] VITALS: BP 126/83; O2SAT 100
== END 2024-05-13 11:25 | disposition home or self-care (01) ==
LOC: M OPP 09:21
PROVIDERS: ATTEND Surgery
DX: Z12.11 Encounter for screening for malignant neoplasm of colon (principal); K57.30 Diverticulosis of large intestine without perforation or abscess without bleeding; K64.2 Third degree hemorrhoids; Z88.2 Allergy status to sulfonamides; Z88.8 Allergy status to other drugs, medicaments and biological substances; Z91.030 Bee allergy status; Z79.899 Other long term (current) drug therapy

== ENCOUNTER → 2024-07-05 | Outpatient (REF) | payer MEDICAID ==
[2024-07-05 12:34] LABS: APPEARANCE, URINE CLEAR (CLEAR); BACTERIA, URINE AUTO 1+ (NEGATIVE); BILIRUBIN, URINE AUTO NEGATIVE (NEGATIVE); BLOOD, URINE BLOOD NEGATIVE (NEGATIVE); COLOR, URINE STRAW (YELLOW); GLUCOSE, URINE (UA) AUTO NEGATIVE (NEGATIVE); KETONE, URINE AUTO NEGATIVE (NEGATIVE); LEUKOCYTE ESTERASE, URINE AUTO TRACE (NEGATIVE); NITRITE, URINE AUTO NEGATIVE (NEGATIVE); PROTEIN, URINE AUTO NEGATIVE (NEGATIVE); RBC, URINE AUTO 0 /HPF (0-3); SPECIFIC GRAVITY URINE AUTO 1.003 (1.002-1.035); SQUAMOUS EPITHELIAL CELL UR AU 2 /HPF (0-6); UROBILINOGEN, URINE AUTO 0.2 mg/dL (0.0-2.0); WBC, URINE AUTO 1 /HPF (0-3)
== END ==
LOC: M LAB REF 12:01
PROVIDERS: ATTEND Physician Assistant Medical
DX: N39.0 Urinary tract infection, site not specified (principal)

== ENCOUNTER 2024-07-20 19:35 | Emergency (ER) | payer MEDICAID ==
[~2024-07-20] VITALS: Ht 167.6 cm; Wt 118.4 kg
[2024-07-20 20:17] VITALS: TEMP 97.1
[2024-07-20] MEDS: ACETAMINOPHEN 325 MG TAB PO ONE (20:22)
[2024-07-20] MEDS ORDERED: ZOLO100T PO (21:26)
[2024-07-20] MEDS ORDERED: SERO1TAB PO (21:26)
[2024-07-20] MEDS ORDERED: HOME MED LIST COMPLETE! XX SCH (21:30)
[2024-07-20 21:32] VITALS: O2SAT 98
[2024-07-20 21:38] VITALS: BP 147/89
== END 2024-07-20 21:51 | disposition home or self-care (01) ==
LOC: M ED 19:35
DX: S49.92XA Unspecified injury of left shoulder and upper arm, initial encounter (principal); Y04.8XXA Assault by other bodily force, initial encounter; Y92.9 Unspecified place or not applicable; Y93.9 Activity, unspecified; Y99.9 Unspecified external cause status; Z88.2 Allergy status to sulfonamides; Z91.030 Bee allergy status; Z79.899 Other long term (current) drug therapy

== ENCOUNTER 2024-10-28 12:50 | Emergency (ER) | payer MEDICAID ==
[~2024-10-28] VITALS: Ht 167.6 cm; Wt 126.3 kg
[~2024-10-28 12:50] MED LIST changes: +SERO1TAB PO; +ZOLO100T PO
[2024-10-28] MEDS: FAMOTIDINE 20 MG/2 ML VIAL IVP ONE (13:36)
[2024-10-28] MEDS: diphenhydrAMINE 50 MG/ML VIAL IV ONE (13:36)
[2024-10-28 13:53] LABS: BASO # 0.1 10^3/uL (0.0-0.2); BASO % 0.5 % (0.0-1.0); EOS # 0.6 10^3/uL (0.0-0.5); EOS % 5.1 % (0.0-3.0); LYMPH # 3.5 10^3/uL (1.5-5.0); LYMPH % 32.5 % (24.0-44.0); MONO # 0.9 10^3/uL (0.0-0.8); MONO % 8.0 % (2.0-8.0); NEUTROPHILS # 5.8 10^3/uL (1.5-8.5); NEUTROPHILS % 53.7 % (36.0-66.0); PLATELET COUNT, AUTOMATED 389 10^3/uL (150-450)
[2024-10-28 14:14] LABS: CALCIUM LEVEL 9.1 MG/DL (8.5-10.1); CARBON DIOXIDE LEVEL 28 MMOL/L (20-31); CHLORIDE LEVEL 105 MMOL/L (98-107); CREATININE FOR GFR 0.72 MG/DL (0.55-1.30); GLOMERULAR FILTRATION RATE > 90.0 (>51); POTASSIUM SERUM 4.1 MMOL/L (3.5-5.1); SODIUM LEVEL 143 MMOL/L (136-145)
[2024-10-28] MEDS ORDERED: HOME MED LIST COMPLETE! XX SCH (14:35)
[2024-10-28 18:30] VITALS: BP 159/77
[2024-10-28 18:33] VITALS: TEMP 97.5; O2SAT 96
== END 2024-10-28 18:59 | disposition home or self-care (01) ==
LOC: M ED 12:50 → EDBD 12:50 → M ED 18:59
DX: T63.441A Toxic effect of venom of bees, accidental (unintentional), initial encounter (principal); I10 Essential (primary) hypertension; R01.1 Cardiac murmur, unspecified; Z87.891 Personal history of nicotine dependence; Z91.030 Bee allergy status; Z88.2 Allergy status to sulfonamides; Z79.899 Other long term (current) drug therapy
CPT/HCPCS: 80048; 85025; 93005; 93041; 94760; 96374; 99285; J1200; J1308; J2919

== ENCOUNTER 2024-11-22 15:07 | Emergency (ER) | payer MEDICAID ==
[~2024-11-22] VITALS: Ht 167.6 cm; Wt 123.5 kg
[2024-11-22 20:59] VITALS: BP 166/93; TEMP 97.9; O2SAT 100
== END 2024-11-22 21:01 | disposition home or self-care (01) ==
LOC: M ED 15:07
DX: S20.224A Contusion of middle back wall of thorax, initial encounter (principal); Y92.019 Unspecified place in single-family (private) house as the place of occurrence of the external cause; Y93.9 Activity, unspecified; Y99.9 Unspecified external cause status; Y04.2XXA Assault by strike against or bumped into by another person, initial encounter; Z88.2 Allergy status to sulfonamides; Z91.030 Bee allergy status; Z79.899 Other long term (current) drug therapy

== ENCOUNTER 2024-11-26 14:03 | Emergency (ER) | payer MEDICAID ==
[2024-11-26 14:31] VITALS: TEMP 98.3
[2024-11-26 15:15] VITALS: BP 141/61; O2SAT 93
== END 2024-11-26 15:35 | disposition home or self-care (01) ==
LOC: M ED 14:03
DX: T78.40XA Allergy, unspecified, initial encounter (principal); T63.441A Toxic effect of venom of bees, accidental (unintentional), initial encounter; I10 Essential (primary) hypertension; Z91.030 Bee allergy status; Z88.2 Allergy status to sulfonamides; Z79.899 Other long term (current) drug therapy

== ENCOUNTER 2024-12-10 12:00 | Emergency (ER) | payer MEDICAID ==
[~2024-12-10] VITALS: Ht 167.6 cm; Wt 124.1 kg
[2024-12-10 12:47] LABS: BASO # 0.0 10^3/uL (0.0-0.2); BASO % 0.4 % (0.0-1.0); EOS # 0.2 10^3/uL (0.0-0.5); EOS % 2.1 % (0.0-3.0); LYMPH # 1.8 10^3/uL (1.5-5.0); LYMPH % 16.9 % (24.0-44.0); MONO # 0.9 10^3/uL (0.0-0.8); MONO % 8.7 % (2.0-8.0); NEUTROPHILS # 7.7 10^3/uL (1.5-8.5); NEUTROPHILS % 71.5 % (36.0-66.0); PLATELET COUNT, AUTOMATED 388 10^3/uL (150-450)
[2024-12-10 12:48] LABS: KETONE, URINE AUTO RFX NEGATIVE (NEGATIVE); MUCUS, URINE RFX SMALL (NEGATIVE); RBC, URINE AUTO RFX 2 /HPF (0-3); SQUAM EPITHELIAL CELL UR AURFX 6 /HPF (0-6)
[2024-12-10 12:49] LABS: LEUKOCYTE ESTERASE UR AUTO RFX 2+ (NEGATIVE); NITRITE, URINE AUTO RFX POSITIVE (NEGATIVE); WBC, URINE AUTO RFX 18 /HPF (0-3)
[2024-12-10 13:03] LABS: ALT/SGPT 15 U/L (7.0-40); AST/SGOT 20 U/L (<34)
[2024-12-10] MEDS: KETOROLAC 30 MG/ML 1 ML VIAL IV ONE (13:45)
[2024-12-10] MEDS ORDERED: ISOVUE-370 76% 100 ML VIAL As Ordered ONE (13:53)
[2024-12-10 15:35] LABS: CK-MB VALUE MASS < 1.0 NG/ML (<3.6)
[2024-12-10 15:40] LABS: CPK CREATINE PHOSPHOKINASE 98 U/L (34-145)
[2024-12-10] MEDS ORDERED: NITR100C3 PO (15:48)
[2024-12-10 15:51] VITALS: TEMP 97.5
[2024-12-10 16:03] VITALS: BP 121/53; O2SAT 98
== END 2024-12-10 16:06 | disposition home or self-care (01) ==
LOC: M ED 12:00
DX: N39.0 Urinary tract infection, site not specified (principal); I45.81 Long QT syndrome; Z88.2 Allergy status to sulfonamides; Z91.030 Bee allergy status; Z79.899 Other long term (current) drug therapy; Z79.810 Long term (current) use of selective estrogen receptor modulators (SERMs)
CPT/HCPCS: 74177; 80047; 80076; 81001; 82550; 82553; 83690; 84484; 85025; 87086; 93005; 96374; 99284; J1885; Q9967

== ENCOUNTER → 2025-01-17 | Outpatient (REF) | payer MEDICAID ==
[~2025-01-17] MED LIST changes: +NITR100C3 PO
== END ==
LOC: M LAB REF 16:58
PROVIDERS: ATTEND Physician Assistant Medical
DX: B34.9 Viral infection, unspecified (principal)

== ENCOUNTER 2025-02-27 16:57 | Emergency (ER) | payer MEDICAID ==
[~2025-02-27] VITALS: Ht 167.6 cm; Wt 122.9 kg
[2025-02-27] MEDS: ACETAMINOPHEN 325 MG TAB PO ONE (17:16)
[2025-02-27 18:14] VITALS: BP 173/114; TEMP 97; O2SAT 98
== END 2025-02-27 18:18 | disposition home or self-care (01) ==
LOC: M ED 18:04
DX: S30.11XA Contusion of abdominal wall, initial encounter (principal); Y92.9 Unspecified place or not applicable; Y93.9 Activity, unspecified; Y99.9 Unspecified external cause status; W50.0XXA Accidental hit or strike by another person, initial encounter; F79 Unspecified intellectual disabilities; Z91.030 Bee allergy status; Z88.2 Allergy status to sulfonamides; Z79.899 Other long term (current) drug therapy